=== PATIENT | female | born 1995 | race Caucasian/White ===

== ENCOUNTER 2019-04-01 18:32 | Emergency (ER) | payer MEDICAID, OTHER ==
[~2019-04-01] VITALS: Ht 160 cm; Wt 73.9 kg
[2019-04-01 19:10] LABS: Urine Bacteria FEW /hpf (None Seen); Urine Blood 1+ /uL (Negative); Urine Hyaline Cast FEW /lpf (0 - 2); Urine Mucus FEW (None Seen); Urine Specific Gravity 1.008 (1.001-1.035); Urine WBC 64 /hpf (0 - 5)
[2019-04-01] MEDS ORDERED: traMADol HCL 50 MG TAB PO ONE (19:30)
[2019-04-01] MEDS ORDERED: CIPROFLOXACIN HCL 500 MG TAB PO ONE (19:30)
[2019-04-01 20:04] VITALS: BP 114/78
== END 2019-04-01 20:18 | disposition home or self-care (01) ==
LOC: ER 18:35
DX: N39.0 Urinary tract infection, site not specified (principal); Z32.02 Encounter for pregnancy test, result negative
CPT/HCPCS: 81001; 81025